=== PATIENT | male | born 1995 | race Caucasian/White ===

== ENCOUNTER → 2017-01-09 | Outpatient (CLI) | payer OTHER ==
[~2017-01-09] MED LIST: no home medications
[2017-01-09 17:03] VITALS: BP 121/71
--- NOTE | 2017-01-09 17:03 | Urgent Care T Sheet Gen (E) ---
Intake General Temperature (Fahrenheit): 98.5 Pulse: 60 Blood Pressure Systolic: 121 Blood Pressure Diastolic: 71 Respirations: 16 SPO2: 100 Description of Symptoms Patient presents with a 1 month history of intermittent epigastric pain. Worse after eating. States it usually subsides after about an hour after eating. No n/v/d. No history. No history of NSAID use. No meds to treat his symptoms. History of Present Illness Allergies: Coded Allergies: No Known Drug Allergies (Unverified , 01/12/15) Home Meds Reported Medications [no home medications] No Conflict Check 01/12/15 Respiratory Constitutional Symptoms: No syptoms reported EENTM: No symptoms reported Respiratory: No symptoms reported Cardiovascular: No symptoms reported Gastrointestinal/Abdominal: Abdominal painNo Constipation, No Diarrhea, No Nausea, No Vomiting All Other Systems Reviewed Remaining Systems: All other systems reviewed with negative findings Past Fhjircl-Mewmcl-Idxqwu Hx Patient's Social History Recent foreign travel: No Surgeries/Hospitalizations Hospitalization/Surgery Hx: Tubes in both ears Respiratory Respiratory History: None Cardiovascular Cardiovascular History: None Reproductive System Sexually Transmitted Diseases: No Diabetes Diabetes: No HEENT Impaired Vision: None Psychosocial Behavior Disorders: None Physical Exam Physical Exam General Appearance: WD/WN No apparent distress Respiratory Exam: Lungs clear Normal breath sounds Cardiovascular Exam: Regular rate, rhythm GI/ Exam: Normal bowel sounds Tenderness (epigastric region)No Guarding, No Rebound Departure Urgent Care Impression Impression: Primary Impression: Epigastric abdominal pain Departure Disposition: 01 HOME OR SELF-CARE Condition: Stable Additional Instructions: I believe the patient has GERD or some variant. Denies any n/v/d and the pain is only associated with eating. I have sent him to the lab for CBC and H.pylori. Will call once results are known. [phone] In the meantime, I want him to start an OTC med such as Prilosec. Will add additional meds if needed based on lab work Patient understands DC instructions. All questions were answered. End of report . EZEQUIEL CORONA January 09, 2017 16:36
--- NOTE | 2017-01-10 14:16 | Urgent Care Follow Up Note (E) ---
Urgent Care Follow Up Note Called patient to discuss lab results. CBC was unremarkable. Still waiting on H.pylori Patient states he started taking OTC Zantac and has noticed an improvement in his symptoms. States his abdomen hasn't hurt yet today. EZEQUIEL CORONA January 10, 2017 14:16
--- NOTE | 2017-01-11 12:21 | Urgent Care Follow Up Note (E) ---
Urgent Care Follow Up Note H.pylori was normal. Continue with the Zantac as directed as it is helping to alleviate the symptoms. Return to UC if anything worsens or changes. EZEQUIEL CORONA January 11, 2017 12:21
== END ==
LOC: MHUC 16:16
PROVIDERS: ATTEND Physician Assistant
DX: R10.13 Epigastric pain (principal)
CPT/HCPCS: 99213

== ENCOUNTER → 2017-01-09 | Outpatient (CLI) | payer OTHER ==
[2017-01-09 16:53] LABS: BASOPHILS % (AUTO) 0 % (0-2); EOSINOPHILS # (AUTO) 0.1 10^3uL; EOSINOPHILS % (AUTO) 2 % (0-4); LYMPHOCYTES # (AUTO) 1.9 X10^3; MEAN CORPUSCULAR HEMOGLOBIN 28.2 PG (26.0-34.0); MEAN CORPUSCULAR HGB CONC 34.6 g/dL (31.0-37.0); MEAN CORPUSCULAR VOLUME 81 FL (80-100); MEAN PLATELET VOLUME 10.4 FL (6.0-9.5); MONOCYTES # (AUTO) 0.7 X10^3; MONOCYTES % (AUTO) 11 % (3-11); NEUTROPHILS # (AUTO) 3.6 X10^3; NEUTROPHILS % (AUTO) 57 % (51-67); PLATELET COUNT 206 10^3uL (150-450); WHITE BLOOD COUNT 6.29 10^3uL (4.0-11.0)
== END ==
LOC: LAB 16:41
PROVIDERS: ATTEND Physician Assistant
DX: R10.30 Lower abdominal pain, unspecified (principal)
CPT/HCPCS: 36415; 85025; 86677